=== PATIENT | male | born 1955 | race Caucasian/White ===

== ENCOUNTER 2020-06-24 18:17 | Emergency (ER) | payer OTHER ==
[~2020-06-24] VITALS: Ht 167.6 cm; Wt 81.6 kg
--- NOTE | 2020-06-24 20:21 | Diagnostic Imaging Report ---
Hand Complete CPT code: 86666 Indication:Trauma Technique: Three views of the right hand obtained Comparison: None. Findings: The area of pain was not indicated or marked. Distal radius and ulna appear intact. Carpal bones appear generally well aligned. The digits are intact and normally aligned. The tuft of the distal phalanx of the fourth digit is prominent. This may be congenital. There are mild degenerative changes of the second and third MCPs. Mild narrowing of the proximal and distal IP joints without osteophytosis. No radiopaque foreign bodies in the soft tissues. IMPRESSION: No evidence for displaced fracture or current dislocation of the hand. Degenerative changes as described above. Signed by: Dr. Jos Nelson MD on 06/24/2020 8:18 PM
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
== END 2020-06-24 21:14 | disposition home or self-care (01) ==
LOC: ER 20:02
DX: S61.411A Laceration without foreign body of right hand, initial encounter (principal); W26.8XXA Contact with other sharp object(s), not elsewhere classified, initial encounter; Y92.008 Other place in unspecified non-institutional (private) residence as the place of occurrence of the external cause; I10 Essential (primary) hypertension; E11.9 Type 2 diabetes mellitus without complications; E78.5 Hyperlipidemia, unspecified
CPT/HCPCS: 99283

== ENCOUNTER → 2025-04-26 | Outpatient (RCR) | payer MEDICARE | LOC: PT 03-27 10:22 | PROVIDERS: ATTEND Student in an Organized Health Care Education/Training Program | DX: M77.8 Other enthesopathies, not elsewhere classified (principal) ==

== ENCOUNTER 2025-05-24 16:00 | Outpatient (RCR) | payer MEDICARE | END 2025-05-27 | LOC: PT 16:00 | PROVIDERS: ATTEND Student in an Organized Health Care Education/Training Program | DX: M77.8 Other enthesopathies, not elsewhere classified (principal); M60.812 Other myositis, left shoulder; M54.2 Cervicalgia; M25.512 Pain in left shoulder; M25.532 Pain in left wrist ==